=== PATIENT | female | born 1990 | race Caucasian/White ===

== ENCOUNTER 2018-10-03 06:05 | Inpatient (IN) | payer BC ==
[2018-10-03] MEDS ORDERED: METHYLERGONOVINE 0.2 MG/ML 1 ML AMP IM PRN (06:26)
[2018-10-03] MEDS ORDERED: TERBUTALINE 1 MG/ML VIAL SQ PRN (06:26)
[2018-10-03] MEDS ORDERED: CARBOPROST TROMETHAMINE 250 MCG/ML 1 ML AMP IM PRN (06:26)
[2018-10-03] MEDS ORDERED: LIDOCAINE 1% INJ 10MG/ML (20 ML MDV) SQ PRN (06:26)
[2018-10-03] MEDS ORDERED: OXYTOCIN 10 UNIT/ML 1 ML VIAL IM PRN (06:26)
[2018-10-03 06:47] VITALS: BMI 41.2
[2018-10-03] MEDS: OXYTOCIN 20 UNITS/1000 ML NS 1,000 ML IV SCH (06:54)
[2018-10-03] MEDS: LACTATED RINGERS 1,000 ML IV SCH ×3 (06:55→15:38)
[2018-10-03 07:05] LABS: Basophils % (A) 0 %; Eosinophils # (A) 0.2 k/uL (0-0.7); Eosinophils % (A) 1 %; HCT 38.6 % (34.0-46.0); HGB 12.8 gm/dL (11.4-16.0); Lymphocytes # (A) 2.3 k/uL (1.0-4.8); Lymphocytes % (A) 17 %; MCH 29.5 pg (25.0-35.0); MCHC 33.2 g/dL (31.0-37.0); MCV 88.9 fL (80.0-100.0); Mean Platelet Volume 7.5; Monocytes # (A) 0.7 k/uL (0-1.0); Monocytes % (A) 5 %; Neutrophils # (A) 9.9 k/uL (1.3-7.7); Neutrophils % (A) 74 %; Platelet Count 223 k/uL (150-450); RBC 4.35 m/uL (3.80-5.40); RDW 13.7 % (11.5-15.5); WBC 13.4 k/uL (3.8-10.6)
[2018-10-03] MEDS ORDERED: CITRIC ACID-SODIUM CITRATE 15 ML CUP PO ONE ×2 (14:16→14:33)
[2018-10-03] MEDS ORDERED: ceFAZolin IN SWFI 2 GM/20 ML SYRINGE IVP ONE (14:16)
[2018-10-03] MEDS ORDERED: ONDANSETRON 4 MG/2 ML VIAL ONE (15:47)
[2018-10-03] MEDS ORDERED: OXYTOCIN 10 UNIT/ML 1 ML VIAL ONE (15:47)
[2018-10-03] MEDS ORDERED: NALBUPHINE 10 MG/ML VIAL (10ML MDV) ONE (15:47)
[2018-10-03] MEDS ORDERED: MORPHINE SULFATE (PF) 0.3 MG/0.3 ML SYR ONE (15:47)
[2018-10-03] MEDS ORDERED: ePHEDrine SULFATE/0.9% NACL/PF 50 MG/5 ML SYRINGE IV ONE (15:47)
[2018-10-03] MEDS ORDERED: ONDANSETRON 4 MG/2 ML VIAL IVP PRN ×2 (16:36→16:41)
[2018-10-03] MEDS ORDERED: NALBUPHINE 10 MG/ML VIAL (10ML MDV) IV PRN (16:36)
[2018-10-03] MEDS ORDERED: MORPHINE SULFATE 4 MG/ML SYRINGE IVP PRN (16:36)
[2018-10-03] MEDS ORDERED: KETOROLAC 30 MG/ML 1 ML VIAL IVP PRN (16:36)
[2018-10-03] MEDS ORDERED: NALOXONE 0.4 MG/ML 1 ML VIAL IV PRN ×2 (16:36→16:41)
[2018-10-03] MEDS ORDERED: diphenhydrAMINE 50 MG/ML 1 ML VIAL IVP PRN ×3 (16:36→16:41)
--- NOTE | 2018-10-03 16:39 | P.OP ---
Date of Procedure: 10/03/18 Preoperative Diagnosis: IUP at 38 and 0/sevenths weeks, suspected LGA, polyhydramnios Failed induction Postoperative Diagnosis: Same Procedure(s) Performed: Primary low transverse section Anesthesia: spinal Surgeon: Lory Hobbs Employee Training Specialist #1: Peace Ambrose Estimated Blood Loss (ml): 600 IV fluids (ml): 900 Urine output (ml): 500 Pathology: none sent Condition: stable Disposition: PACU Indications for Procedure: Failed induction, patient was admitted to labor and delivery presentation patient received Pitocin throughout the day with regular contractions no cervical change was noted option was given to the patient to proceed with induction versus primary low transverse section secondary to failed induction patient elected primary Operative Findings: Normal uterus tubes and ovaries were appreciated Description of Procedure: The patient was prepped and draped in the usual fashion after spinal anesthesia was administered. A Pfannenstiel incision was made and extended of the abdominal cavity without difficulty. The bladder peritoneum was elevated and incised and reflected distally. A 2 cm incision was made in the transverse plane of the lower uterine segment to enter the uterus at which time clear fluid was noted. The incision was extended in both directions using the bandage scissors. The head was encountered within the field and delivered up and through the incision where the nose and mouth were thoroughly suctioned. Remainder of the was delivered onto the surgical field where the cord was doubly clamped, cut, and the was passed for resuscitative measures with weight 7-14 and Apgars 9-9 at one and 5 minutes respectively. A segment of cord was then doubly clamped, cut, and set aside should cord gases become necessary. The placenta was delivered manually, intact, and was grossly normal with a grossly normal three-vessel cord. The uterus was exteriorized and the interior cavity of the uterus swept of any remaining placental and membranous fragments with a laparotomy sponge. The margins of the incision were grasped with Allis clamps and the incision closed in 2 layers. First layer was a running locking layer of 0 vicryl from margin to margin followed by a second layer of imbricating 0 vicryl from margin to margin. Any small points of bleeding were then made hemostatic with the Bovie. Small amount of bleeding was noted in the midportion of the hysterotomy site therefore a [id number] suture was used to obtain hemostasis. Once hemostasis was achieved, the posterior cul-de-sac was suctioned with a guard and the uterine and ovarian findings are as noted above. The uterus was replaced within the abdominal cavity and the gutters swept of any remaining blood fluid or clot. The incision was again reexamined and hemostasis was noted to be excellent. Any small point of bleeding were made hemostatic with the Bovie. Once hemostasis was achieved the parietal peritoneum was loosely reapproximated. The layer of muscles were examined and made hemostatic with the Bovie. Attention was then turned to the fascia which was closed with 2 running stitches of 0 Vicryl proceeding from the lateral margins to the midpoint. The subcutaneous tissues were irrigated, made hemostatic with the Bovie, and reapproximated with a running stitch of 30 vicryl. The skin was reapproximated with 4-0 vicryl. Estimated blood loss for the case was approximately 600 mL. All sponge instrument and needle counts are correct. There were no complications. The patient tolerated the procedure well and proceeded to the recovery room in stable condition. Both mother and infant are resting comfortably in recovery.
[2018-10-03] MEDS ORDERED: diphenhydrAMINE 25 MG CAP PO PRN (16:41)
[2018-10-03] MEDS ORDERED: MEASLES-MUMPS-RUBELLA VACC/PF 12,500 UNIT/0.5 ML VIAL SQ ONE (16:41)
[2018-10-03] MEDS ORDERED: ACETAMINOPHEN IV (For NPO) 1,000 MG in EMPTY BAG 1 BAG IVPB ONE (16:41)
[2018-10-03] MEDS ORDERED: ZOLPIDEM 5 MG TAB PO PRN (16:41)
[2018-10-03] MEDS ORDERED: HYDROcodone/APAP 5-325MG 1 EACH TAB PO PRN (16:41)
[2018-10-03] MEDS ORDERED: diphenhydrAMINE 50 MG CAP PO PRN (16:41)
[2018-10-03] MEDS ORDERED: METOCLOPRAMIDE 5 MG/ML 2 ML VIAL IVP PRN (16:41)
--- NOTE | 2018-10-03 16:41 | P.HPOB ---
History of Present Illness H&P Date: 10/03/18 Chief Complaint: IUP at 38 and 2/sevenths weeks, polyhydramnios, LGA This is a pleasant 28-year-old 1 para 0 at 38-0/7 weeks, EDC 10/16/2017 that presented to labor and delivery for induction of labor secondary to polyhydramnios, LGA, headache, maternal discomfort. Patient was dated this by a seven-week ultrasound. Patient has been being monitored for LGA since 36 weeks of or the 96th percentile since then. BOGDAN noted to be 22. Patient has noted good movement denies vaginal bleeding loss of fluid. Patient has been receiving routine care with myself since the first trimester. On blood work showed a blood type of O+ with antibody screen positive for anti-am that was unable to be titrated secondary to being too low. Rubella was noted to be nonimmune hepatitis B surface antigen was negative, HIV was negative, group beta strep was negative in addition. Review of Systems Constitutional: Denies chills, Denies fatigue, Denies fever Ears, nose, mouth and throat: Reports headache Cardiovascular: Reports leg edema Respiratory: Denies cough, Denies dyspnea Gastrointestinal: Denies constipation, Denies diarrhea, Denies nausea, Denies vomiting Genitourinary: Reports Past Medical History Past Medical History: No Reported History History of Any Multi-Drug Resistant Organisms: None Reported Past Surgical History: Cholecystectomy Additional Past Surgical History / Comment(s): Lipoma removed from her arm. Past Anesthesia/Blood Transfusion Reactions: No Reported Reaction Past Psychological History: No Psychological Hx Reported Smoking Status: Never smoker Past Alcohol Use History: None Reported Past Drug Use History: None Reported - Past Family History Father Family Medical History: Diabetes Mellitus, Hypertension Mother Family Medical History: Hypertension Medications and Allergies Home Medications Medication Instructions Recorded Confirmed Type Pnv No.95/Ferrous Fum/Folic AC 1 tab PO DAILY 09/10/18 10/03/18 History [ Multivitamin Tablet] Ranitidine HCl [Zantac] 150 mg PO HS PRN 10/03/18 10/03/18 History Allergies Allergy/AdvReac Type Severity Reaction Status Date / Time codeine Allergy Swelling Verified 10/03/18 06:25 Exam Osteopathic Statement: *. No significant issues noted on an osteopathic structural exam other than those noted in the History and Physical/Consult. Vital Signs Temp Pulse Resp BP Pulse Ox 10/03/18 06:35 98.0 F 114 H 16 131/75 97 Intake and Output 10/02/18 10/03/18 10/03/18 22:59 06:59 14:59 Other: # Voids 2 Weight 112.491 kg Targeted physical exam was performed on this date in general this is a well- nourished well-developed female in no acute distress, she displays nonlabored breathing and lungs are clear to auscultation bilaterally, heart is regular rate and rhythm abdomen is gravid and large for gestational age, cervix is 150-3 station amniotomy was performed and clear fluid was obtained. heart tones were noted to be reassuring and she was joe irregularly at this time. Results Result Diagrams: 10/03/18 06:40 Abnormal Lab Results - Last 24 Hours (Table) 10/03/18 Range/Units 06:40 WBC 13.4 H (3.8-10.6) k/uL Neutrophils # 9.9 H (1.3-7.7) k/uL Assessment and Plan (1) Term Current Visit: Yes Status: Acute Code(s): Z34.80 - ENCOUNTER FOR SUPRVSN OF NORMAL , UNSP TRIMESTER SNOMED Code(s): 85797608 (2) LGA (large for gestational age) fetus Current Visit: Yes Status: Acute Code(s): EYZ8532 - SNOMED Code(s): 537066864 (3) Polyhydramnios Current Visit: Yes Status: Acute Code(s): O40.9XX0 - POLYHYDRAMNIOS, UNSP TRIMESTER, NOT APPLICABLE OR UNSP SNOMED Code(s): 76828002 (4) Headache Current Visit: Yes Status: Acute Code(s): R51 - HEADACHE SNOMED Code(s): 72528535 Plan: Patient is admitted to labor and delivery for Pitocin induction of labor. Patient is counseled as the possibility of given her low Dawn score and suspected macrosomic . Patient states understanding and wishes to proceed. We'll follow closely.
[2018-10-03] MEDS ORDERED: IBUPROFEN IV 800 MG in SODIUM CHLORIDE 0.9% 250 ML IV ONE (16:43)
[2018-10-03] MEDS ORDERED: OXYTOCIN 20 UNITS/1000 ML NS 1,000 ML IV SCH (16:45)
[2018-10-04] MEDS: LACTATED RINGERS 1,000 ML IV SCH ×4 (02:00→20:27)
[2018-10-04] MEDS: SENNOSIDES-DOCUSATE SODIUM 1 EACH TAB PO SCH ×3 (04:44→20:00)
[2018-10-04 06:59] LABS: Basophils % (A) 0 %; Eosinophils # (A) 0.1 k/uL (0-0.7); Eosinophils % (A) 0 %; HCT 32.5 % (34.0-46.0); Lymphocytes # (A) 1.7 k/uL (1.0-4.8); Lymphocytes % (A) 12 %; MCH 30.5 pg (25.0-35.0); MCV 89.9 fL (80.0-100.0); Mean Platelet Volume 7.9; Monocytes # (A) 0.8 k/uL (0-1.0); Monocytes % (A) 5 %; Neutrophils # (A) 11.4 k/uL (1.3-7.7); Neutrophils % (A) 81 %; Platelet Count 191 k/uL (150-450); RBC 3.61 m/uL (3.80-5.40); RDW 13.8 % (11.5-15.5); WBC 14.1 k/uL (3.8-10.6)
--- NOTE | 2018-10-04 08:27 | P.PNOBGPC ---
Subjective - Subjective Principal diagnosis: POD 1 LTCS Interval history: Patient has done well overnight. She is ambulating and voiding without difficulty. She is tolerating a regular diet this morning without nausea or vomiting. She is breast-feeding without difficulty. She states her pain is well-controlled is ready. She denies concerns lochia is minimal Patient reports: Reports appetite normal, Reports voiding normally, Reports pain well controlled, Reports ambulating normally [place]: doing well, nursing well Objective - Vital Signs Latest vital signs: Vital Signs Temp Pulse Resp BP Pulse Ox 10/04/18 08:00 98 F 96 14 106/72 10/04/18 05:00 16 10/04/18 04:00 98.8 F 101 H 16 116/67 95 10/04/18 03:00 16 10/04/18 01:00 16 10/04/18 00:00 98 F 93 16 126/72 98 10/03/18 23:00 98.3 F 93 16 126/72 98 10/03/18 21:00 16 10/03/18 19:36 16 10/03/18 18:47 99 16 125/75 10/03/18 18:17 98.4 F 102 H 16 148/73 10/03/18 17:50 107 H 16 106/53 10/03/18 17:36 16 97 10/03/18 17:32 109 H 16 116/61 10/03/18 17:17 98.3 F 113 H 16 127/68 10/03/18 17:02 98.0 F 100 16 137/75 10/03/18 16:47 98.1 F 98 16 137/73 10/03/18 16:36 100 16 136/80 100 Intake and Output 10/03/18 10/04/18 10/04/18 22:59 06:59 14:59 Output Total 1999 3300 700 Balance -1999 -3300 -700 Output: Urine 1999 3300 700 Uretheral ([place]ton) 800 Other: Voiding Method Indwelling Catheter Indwelling Catheter # Voids 1 1 - Exam Extremities: Present: edema Abdomen: Present: normal appearance, soft Incision: Present: normal, dry, intact Uterus: Present: normal, firm - Labs Labs: Abnormal Lab Results - Last 24 Hours (Table) 10/04/18 Range/Units 06:39 WBC 14.1 H (3.8-10.6) k/uL RBC 3.61 L (3.80-5.40) m/uL Hgb 11.0 L (11.4-16.0) gm/dL Hct 32.5 L (34.0-46.0) % Neutrophils # 11.4 H (1.3-7.7) k/uL Assessment and Plan (1) Term Current Visit: Yes Status: Acute Code(s): Z34.80 - ENCOUNTER FOR SUPRVSN OF NORMAL , UNSP TRIMESTER SNOMED Code(s): 04637289 (2) LGA (large for gestational age) fetus Current Visit: Yes Status: Acute Code(s): QDV6833 - SNOMED Code(s): 675496961 (3) Polyhydramnios Current Visit: Yes Status: Acute Code(s): O40.9XX0 - POLYHYDRAMNIOS, UNSP TRIMESTER, NOT APPLICABLE OR UNSP SNOMED Code(s): 90796402 (4) Headache Current Visit: Yes Status: Acute Code(s): R51 - HEADACHE SNOMED Code(s): 22435382 (5) Status post delivery Current Visit: Yes Status: Acute Code(s): Z98.891 - HISTORY OF UTERINE SCAR FROM PREVIOUS SURGERY SNOMED Code(s): 473326498 Plan: We'll continue postoperative care. And anticipate discharge home tomorrow on postop day #2.
--- NOTE | 2018-10-04 11:59 | P.PN ---
Progress Note - Text Progress Note Date: 10/04/18 Postoperative day 1 status post section under spinal anesthesia, and intrathecal morphine given for postoperative analgesia, patient doing well, there is no anesthesia related complications, Patient had no headache, vital signs stable , Assessment and plan= postop day 1 status post , doing well there is no anesthesia related complication.
[2018-10-04] MEDS: IBUPROFEN 600 MG TAB PO PRN ×2 (12:00→20:01)
[2018-10-04] MEDS: OXYTOCIN 20 UNITS/1000 ML NS 1,000 ML IV SCH (20:23)
[2018-10-04] MEDS: ACETAMINOPHEN TAB 325 MG TAB PO PRN (23:19)
[2018-10-05] MEDS: IBUPROFEN 600 MG TAB PO PRN ×2 (02:05→13:36)
[2018-10-05] MEDS: SENNOSIDES-DOCUSATE SODIUM 1 EACH TAB PO SCH (08:00)
[2018-10-05] MEDS: ACETAMINOPHEN TAB 325 MG TAB PO PRN (09:13)
[2018-10-05 09:44] VITALS: BP 124/61; PULSE 104; RESP 18; TEMP 97.7
--- NOTE | 2018-10-05 09:49 | P.DS ---
Providers Date of admission: 10/03/18 06:05 Expected date of discharge: 10/05/18 Attending physician: Lory Hobbs Primary care physician: Stated None Hospital Course: This is a 28-year-old white female 1 para 0 EDC 10/16/1937 weeks gestation. Patient presented in early active spontaneous labor. was essentially unremarkable, group B strep cultures negative, blood type O+, rubella status nonimmune. Please see dictated history and physical for details. Blood pressure on admission normal, 131/75. Patient progressed through labor, but ultimately had arrest of dilatation and descent. She therefore underwent a primary low transverse section. She gave to a liveborn female infant with a weight of 3540 g, or 7 lbs. 14 oz. Please see dictated operative note for details. This morning the patient is doing well. She is voiding, ambulating and passing flatus without difficulty. Vital signs are stable and she is afebrile. Incision is clean and dry, intact, Steri-Strips applied. Extremities reveal trace edema. Chest is clear in all greene. infant is doing well. Patient is requesting discharge home. She is being discharged home in good condition. She will follow-up with Dr. Hobbs the office in 2 weeks for incision check. I reminded her no intercourse, tampons or douching. She will use [id number] ibuprofen products, or Motrin or Aleve as needed for pain. I've asked her to call with any fevers shakes or chills, foul smelling be is lochia, with any difficulties or concerns. She will call with any pain not alleviated by [id number] products. infant will follow-up with curriculum director as recommended. Patient Condition at Discharge: Good Plan - Discharge Summary Discharge Rx Participant: No New Discharge Prescriptions: No Action Pnv No.95/Ferrous Fum/Folic AC [ Multivitamin Tablet] 1 tab PO DAILY Ranitidine HCl [Zantac] 150 mg PO HS PRN PRN Reason: Heartburn Discharge Medication List Pnv No.95/Ferrous Fum/Folic AC [ Multivitamin Tablet] 1 tab PO DAILY 01/23 [History] Ranitidine HCl [Zantac] 150 mg PO HS PRN 10/03/18 [History] Follow up Appointment(s)/Referral(s): Lory Hobbs DO [Doctor of Osteopathic Medicine] - 2 Weeks
== END 2018-10-05 16:25 | disposition home or self-care (01) | DRG 787 ==
LOC: 4FBP 06:05
PROVIDERS: ADMIT Obstetrics & Gynecology Obstetrics; ATTEND Obstetrics & Gynecology Obstetrics
PROC: 3E033VJ Introduction of Other Hormone into Peripheral Vein, Percutaneous Approach (ICD-10-PCS; 2018-10-03)
PROC: 10D00Z1 Extraction of Products of Conception, Low, Open Approach (ICD-10-PCS; principal; 2018-10-03 16:00)
DX: O36.63X0 Maternal care for excessive fetal growth, third trimester, not applicable or unspecified (principal); O99.354 Diseases of the nervous system complicating childbirth; O40.3XX0 Polyhydramnios, third trimester, not applicable or unspecified; O62.0 Primary inadequate contractions; O32.4XX0 Maternal care for high head at term, not applicable or unspecified; O61.0 Failed medical induction of labor; R51 Headache; Z37.0 Single live birth; Z3A.38 38 weeks gestation of pregnancy; Z88.5 Allergy status to narcotic agent; Z82.49 Family history of ischemic heart disease and other diseases of the circulatory system; Z83.3 Family history of diabetes mellitus
CPT/HCPCS: 85025; 86850; 86900; 86901; 90707

== ENCOUNTER 2021-04-25 22:12 | Outpatient (CLI) | payer BC ==
[2021-04-25 23:17] VITALS: BP 134/88; PULSE 102; RESP 18; TEMP 98.3
--- NOTE | 2021-06-15 16:19 | P.MSEPDOC ---
Presenting Problems - Arrival Data Date of Arrival on Unit: 04/25/21 Time of Arrival on Unit: 22:12 Mode of Transport: Ambulatory - Complaint OB-Reason for Admission/Chief Complaint: Decreased Movement Medical History - Information : 2 Para: 1 Term: 1 : 0 Abortions: Spontaneous or Elective: 0 Number of Living Children: 1 - Gestational Age Gestational Age by AARTI (wks/days): 32 Weeks and 5 Days Review of Systems - Review of Systems Constitutional: No problems Breast: No problems ENT: No problems Cardiovascular: No problems Respiratory: No problems Gastrointestinal: No problems Genitourinary: No problems Musculoskeletal: No problems Neurological: No problems Skin: No problems Comment: cough since Sunday Vital Signs - Temperature Temperature: 98.3 F Temperature Source: Oral - Pulse Right Pulse Rate: 102 Pulse Assessment Method: Automatic Cuff - Respirations Respiratory Rate: 18 Oxygen Delivery Method: Room Air O2 Sat by Pulse Oximetry: 98 - Blood Pressure Right Arm Blood Pressure: 134/88 Blood Pressure Mean: 103 Blood Pressure Source: Automatic Cuff Medical Screen Scoring - Cervical Exam Membranes: Intact - Assessment - Baby A Baseline FHR: 150 Heart Rate - NICHD Category: Category I (Normal) NST: Reactive Physician Notification - Physician Notified Physician Notified Date: 04/25/21 Physician Notified Time: 22:50 Physician: Lory Hobbs New Order Received: Yes - Notification Comment Comment: Pt has c/o DFM today and has had c/o cough since Sunday. Spouse was COVID tested (negative), no fever. Order received to COVID swab pt. If test is negative, pt may DC home and follow up as scheduled. Pt to drink lots of fluids, rest, and may take Robutissin PRN for cough. Maternal Triage Index - Stat/Priority 1 Stat Priority 1: No - Urgent/Priority 2 Urgent Priority 2: Yes Provider Notified: Lory Hobbs Provider Notified Time: 22:50 Criteria Met for Priority 2: C/o DFM Disposition - Disposition OB Disposition: Triage Discharge Date: 04/26/21 Discharge Time: 23:45 I agree with the RN Medical Screening Exam: Yes Case reviewed; plan agreed upon as documented in EMR&OBIX.: Yes Diagnosis: DECREASED MOVEMENTS, UNSP TRIMESTER, UNSP
== END 2021-04-25 23:45 | disposition home or self-care (01) ==
LOC: FBPOP 22:12
PROVIDERS: ATTEND Obstetrics & Gynecology Obstetrics
DX: O36.8130 Decreased fetal movements, third trimester, not applicable or unspecified (principal); Z3A.32 32 weeks gestation of pregnancy; Z20.822 Contact with and (suspected) exposure to COVID-19
CPT/HCPCS: 59025; 87635; 99213

== ENCOUNTER 2021-05-17 15:52 | Outpatient (CLI) | payer BC ==
[2021-05-17] MEDS ORDERED: ACETAMINOPHEN TAB 500 MG TAB PO STA (16:16)
[2021-05-17 16:24] LABS: Appearance,Urine Cloudy (Clear); Bilirubin,Urine Negative (Negative); Blood,Urine Negative (Negative); Color,Urine Light Yellow; Glucose,Urine (UA) Negative (Negative); Ketones,Urine Negative (Negative); Leukocyte Esterase,Urine Negative (Negative); Nitrite,Urine Negative (Negative); PH, Urine 6.5 (5.0-8.0); Protein,Urine Negative (Negative); Specific Gravity,Urine 1.005 (1.001-1.035); Squamous Epithelial Cell,Urine 1 /hpf (0-4); Urobilinogen,Urine <2.0 mg/dL (<2.0); WBC,Urine 1 /hpf (0-5)
[2021-05-17 16:36] LABS: ALT 11 U/L (4-34); AST 20 U/L (14-36)
[2021-05-17 16:38] LABS: Creatinine,Urine Random 27.4 mg/dL; Creatinine,Urine Random 27.6 mg/dL; Protein/Creatinine Ratio,Urine 0.507
[2021-05-17 16:45] LABS: Basophils % (A) 0 %; Eosinophils # (A) 0.1 k/uL (0-0.7); Eosinophils % (A) 0 %; HGB 13.7 gm/dL (11.4-16.0); Lymphocytes # (A) 1.9 k/uL (1.0-4.8); Lymphocytes % (A) 17 %; MCH 31.8 pg (25.0-35.0); MCHC 35.2 g/dL (31.0-37.0); MCV 90.2 fL (80.0-100.0); Mean Platelet Volume 8.9; Monocytes # (A) 0.6 k/uL (0-1.0); Monocytes % (A) 5 %; Neutrophils # (A) 8.3 k/uL (1.3-7.7); Neutrophils % (A) 74 %; Platelet Count 203 k/uL (150-450); RBC 4.33 m/uL (3.80-5.40); RDW 13.7 % (11.5-15.5); WBC 11.3 k/uL (3.8-10.6)
[2021-05-17] MEDS ORDERED: BETAMET ACET-BETAMETH SOD PHOS 6 MG/ML MDV IM SCH (17:15)
[2021-05-17 17:50] VITALS: BP 153/80; PULSE 93; RESP 18; TEMP 97.6
== END 2021-05-17 17:40 | disposition home or self-care (01) ==
LOC: FBPOP 15:52
PROVIDERS: ATTEND Obstetrics & Gynecology Obstetrics
DX: O14.93 Unspecified pre-eclampsia, third trimester (principal); Z3A.35 35 weeks gestation of pregnancy; Z88.5 Allergy status to narcotic agent
CPT/HCPCS: 59025; 96372; 82570; 84156; 84450; 84460; 84550; 85025; 81001; J0702; 84560; 99215

== ENCOUNTER 2021-05-18 16:30 | Outpatient (CLI) | payer BC ==
[2021-05-18] MEDS ORDERED: BETAMET ACET-BETAMETH SOD PHOS 6 MG/ML MDV IM SCH (16:45)
[2021-05-18 18:32] VITALS: BP 108/56; PULSE 93; RESP 16; TEMP 97.6
== END 2021-05-18 17:40 | disposition home or self-care (01) ==
LOC: FBPOP 16:30
PROVIDERS: ATTEND Obstetrics & Gynecology Obstetrics
DX: O13.3 Gestational [pregnancy-induced] hypertension without significant proteinuria, third trimester (principal); Z3A.36 36 weeks gestation of pregnancy; Z88.5 Allergy status to narcotic agent
CPT/HCPCS: 59025; 96372; J0702; 99213

== ENCOUNTER 2021-05-25 10:42 | Inpatient (IN) | payer BC ==
[2021-05-25] MEDS ORDERED: LACTATED RINGERS 1,000 ML IV SCH (11:00)
[2021-05-25 11:20] LABS: Basophils % (A) 0 %; Eosinophils # (A) 0.1 k/uL (0-0.7); Eosinophils % (A) 0 %; HCT 42.9 % (34.0-46.0); Lymphocytes # (A) 2.2 k/uL (1.0-4.8); Lymphocytes % (A) 17 %; MCH 31.9 pg (25.0-35.0); MCHC 34.8 g/dL (31.0-37.0); MCV 91.6 fL (80.0-100.0); Mean Platelet Volume 9.3; Monocytes # (A) 0.6 k/uL (0-1.0); Monocytes % (A) 5 %; Neutrophils % (A) 76 %; Platelet Count 219 k/uL (150-450); Poikilocytosis Slight; RBC 4.69 m/uL (3.80-5.40); RDW 14.7 % (11.5-15.5); WBC 13.1 k/uL (3.8-10.6)
[2021-05-25 11:30] LABS: ALT 12 U/L (4-34); AST 20 U/L (14-36); African American GFR (CKD) >90 (>60 ml/min/1.73 sqM); Blood Urea Nitrogen 11 mg/dL (7-17); LDH 443 U/L (313-618); Magnesium 1.7 mg/dL (1.6-2.3); Non-African American GFR(CKD) >90 (>60 ml/min/1.73 sqM); Uric Acid 5.3 mg/dL (3.7-7.4)
[2021-05-25 11:35] LABS: INR 0.9 (<1.2); Prothrombin Time 9.4 sec (9.0-12.0)
[2021-05-25 11:39] LABS: Partial Thromboplastin Time 21.8 sec (22.0-30.0)
[2021-05-25] MEDS ORDERED: CITRIC ACID-SODIUM CITRATE 15 ML CUP PO ONE (12:14)
[2021-05-25 12:21] LABS: Appearance,Urine Clear (Clear); Bilirubin,Urine Negative (Negative); Blood,Urine Negative (Negative); Color,Urine Light Yellow; Glucose,Urine (UA) Negative (Negative); Ketones,Urine Negative (Negative); Leukocyte Esterase,Urine Negative (Negative); Nitrite,Urine Negative (Negative); PH, Urine 6.5 (5.0-8.0); Protein,Urine Negative (Negative); Specific Gravity,Urine 1.007 (1.001-1.035); Urobilinogen,Urine <2.0 mg/dL (<2.0)
[2021-05-25 12:36] LABS: Creatinine,Urine Random 45.4 mg/dL; Protein/Creatinine Ratio,Urine 0.308
[2021-05-25] MEDS ORDERED: PHENYLEPHRINE-0.9% NACL SYG 1,000 MCG/10 ML SYRINGE ONE (16:16)
[2021-05-25] MEDS ORDERED: OXYTOCIN 30 UNITS/500 ML NS BAG IV ONE (16:16)
[2021-05-25] MEDS ORDERED: DEXAMETHASONE SOD PHOSPHATE 4 MG/ML 1 ML VIAL ONE (16:16)
[2021-05-25] MEDS ORDERED: MORPHINE SULFATE (PF) 0.3 MG/0.3 ML SYR ONE (16:16)
[2021-05-25] MEDS ORDERED: ONDANSETRON 4 MG/2 ML VIAL ONE (16:16)
[2021-05-25] MEDS ORDERED: fentaNYL (PF) 50 MCG/ML 2 ML AMP ONE (16:16)
[2021-05-25] MEDS ORDERED: METOCLOPRAMIDE 5 MG/ML 2 ML VIAL IVP PRN (17:20)
[2021-05-25] MEDS ORDERED: ONDANSETRON 4 MG/2 ML VIAL IVP PRN (17:20)
[2021-05-25] MEDS ORDERED: NALOXONE 0.4 MG/ML 1 ML VIAL IV PRN (17:20)
[2021-05-25] MEDS ORDERED: diphenhydrAMINE 50 MG/ML 1 ML VIAL IVP PRN ×2 (17:20)
[2021-05-25] MEDS ORDERED: diphenhydrAMINE 25 MG CAP PO PRN (17:20)
[2021-05-25] MEDS ORDERED: ZOLPIDEM 5 MG TAB PO PRN (17:20)
[2021-05-25] MEDS ORDERED: diphenhydrAMINE 50 MG CAP PO PRN (17:20)
[2021-05-25] MEDS ORDERED: SIMETHICONE 80 MG CHEWABLE PO PRN (17:20)
--- NOTE | 2021-05-25 17:25 | P.HPOB ---
History of Present Illness H&P Date: 05/25/21 Chief Complaint: IUP @ 37 0/7 gestational HTN, h/o section x 1 This is a 30 yo at 37 weeks that presents from the office with complaints of WALTON, despite taking tylenol. patient has had a few elevated BP over the last few weeks and did receive betamethasone. she states she has a worsening WALTON today BP in the office 130's/80's. she states this is pretty c onsistent with her BPs at home. Preeclampsia labs were done on labor and delivery today normal in nature, protein creatinine ratio was elevated at 0.3. she had an uncomplicated first ending in c section due to arrest of descent and dilation. On bloodwork patient has a blood type of O+, rubella status immune, B surface antigen negative, HIV negative, RPR nonreactive, group beta strep cultures negative. Review of Systems Constitutional: Reports fatigue, Reports fever, Denies chills, Denies chronic headaches Ears, nose, mouth and throat: Reports headache Cardiovascular: Reports leg edema Respiratory: Denies dyspnea Gastrointestinal: Denies constipation, Denies diarrhea, Denies nausea, Denies vomiting Genitourinary: Reports Past Medical History Past Medical History: No Reported History History of Any Multi-Drug Resistant Organisms: None Reported Past Surgical History: Cholecystectomy Additional Past Surgical History / Comment(s): Lipoma removed from her arm. Past Anesthesia/Blood Transfusion Reactions: No Reported Reaction Smoking Status: Never smoker - Past Family History Father Family Medical History: Diabetes Mellitus, Hypertension Mother Family Medical History: Hypertension Medications and Allergies Home Medications Medication Instructions Recorded Confirmed Type Pnv No.95/Ferrous Fum/Folic AC 1 tab PO DAILY 09/10/18 05/25/21 History [ Multivitamin Tablet] Allergies Allergy/AdvReac Type Severity Reaction Status Date / Time codeine Allergy Swelling Verified 05/25/21 10:58 Exam Osteopathic Statement: *. No significant issues noted on an osteopathic structural exam other than those noted in the History and Physical/Consult. Intake and Output 05/24/21 05/25/21 05/25/21 22:59 06:59 14:59 Other: Weight 113.852 kg Targeted physical exam is performed and state in general is well-nourished well- developed female in no distress, breathing is noted to be nonlabored, heart has regular rate and rhythm, abdomen is gravid, cervical exam is deferred, heart tones are noted to be category 1 and she is not joe. Results Result Diagrams: 05/25/21 11:01 05/25/21 11:01 Abnormal Lab Results - Last 24 Hours (Table) 05/25/21 05/25/21 Range/Units 11:01 11:01 WBC 13.1 H (3.8-10.6) k/uL Neutrophils # 10.0 H (1.3-7.7) k/uL APTT 21.8 L (22.0-30.0) sec Fibrinogen 687 H (200-500) mg/dL Assessment and Plan (1) 37 weeks gestation of Current Visit: Yes Status: Acute Code(s): Z3A.37 - 37 WEEKS GESTATION OF SNOMED Code(s): 07432565 (2) H/O section Current Visit: Yes Status: Acute Code(s): Z98.891 - HISTORY OF UTERINE SCAR FROM PREVIOUS SURGERY SNOMED Code(s): 435613320 (3) PIH ( induced hypertension) Current Visit: Yes Status: Acute Code(s): O13.9 - GESTATIONAL HTN W/O SIGNIFICANT PROTEINURIA, UNSP TRIMESTER SNOMED Code(s): 61709380 (4) Headache Current Visit: No Status: Acute Code(s): R51 - HEADACHE * DO NOT USE * SNOMED Code(s): 41857391 Plan: 30-year-old at 37-0/7 weeks presented from the office with elevated blood pressures and headache. Blood pressures in the office 137/88. Initial blood pressure was noted to be elevated here on labor and delivery and then settled into 130s over 80s. Initial blood pressure 150s over low 100s subsequent 145/95. Blood pressures did normalize to 130s over 80s with bedrest. Patient is counseled on need for secondary to gestational hypertension diagnosis. Patient states understanding and wishes to proceed. Patient is taken back to the operating suite for repeat section. We'll monitor blood pressures and assess need for magnesium sulfate given symptoms and blood pressures.
[2021-05-25] MEDS ORDERED: OXYTOCIN 30 UNITS/500 ML NS 30 UNIT in SALINE 1 500ML.BAG IV SCH (17:30)
--- NOTE | 2021-05-25 17:30 | P.OP ---
Date of Procedure: 05/25/21 Preoperative Diagnosis: IUP at 37-0/7 weeks, history of 1 desires repeat, gestational hypertension, headache Postoperative Diagnosis: Same Procedure(s) Performed: Repeat section Anesthesia: spinal Surgeon: Lory Hobbs Child Development Specialist #1: Peace Ambrose Estimated Blood Loss (ml): 220 IV fluids (ml): 600 Urine output (ml): 200 Pathology: other (Placenta) Condition: stable Disposition: observation Indications for Procedure: 30-year-old at 37-0/7 weeks that was seen in the office today for visit, blood pressures 137/88, headache noted for the last week per patient. Patient states her headache was increasing in severity. Patient did take Tylenol without relief of symptoms. Patient was counseled to head to labor and delivery for serial blood pressures nonstress test. Nonstress test revealing category 1 heart tones contractions were appreciated. initial blood pressures 152 over low 100, subsequent blood pressures 145 over low 90s, settled into 130s over 80s on bedrest. patient was counseled on diagnosis of gestational hypertension, and the need to do at 37 and 0 secondary to this diagnosis. Patient states understanding and was taken back to the operating suite. Operative Findings: Viable male infant delivered at 1641, vacuum extraction was performed, weight of 7 lbs. 0 oz. and Apgars of 9 and 9 at one and 5 minutes respectively. Normal uterus tubes and ovaries were appreciated. A very thin lower uterine segment was appreciated upon visualization. Description of Procedure: Patient was taken back to the operating suite where spinal anesthesia was found be adequate by the anesthesia department. She was then prepped and draped in the normal sterile fashion in the dorsal supine position. A Pfannenstiel skin incision was made with the scalpel and carried through to the underlying layer of fascia. The fascia was then incised in the midline and the incision was extended laterally. Superior aspect of the fascial incision was then grasped delonte clamps, elevated and underlying rectus muscles dissected off sharply. Attention was then turned to the inferior aspect of the fascial incision which was grasped delonte clamps, elevated and underlying rectus muscles dissected off sharply once again. The rectus muscles were in the midline the peritoneum was identified and entered. The incision was then extended superiorly and inferiorly with good visualization the bladder. The bladder blade was then inserted and the vesicouterine peritoneum was identified and the bladder flap was created using sharp and blunt dissection. Hysterotomy incision was then performed with the scalpel amniotomy was performed clear fluid was obtained. Infant was delivered in a vertex presentation via vacuum assist. The umbilical cord was doubly clamped and cut and infant was handed off to awaiting RN. The placenta was then delivered manually and uterus cleared of all clots and debris. Prior to this cord blood was taken. The uterus was delivered from the abdomen the uterine incision was then closed with 0 Vicryl in a running locked fashion. A second imbricating suture was performed. Bleeding was noted on the midportion of the uterine incision therefore a [id number] suture was used to obtain hemostasis. The uterine incision was inspected hemostasis was appreciated. The uterus was returned to the abdomen. The gutters were cleared of all clots and debris. On inspection of the hysterotomy incision hemostasis was appreciated. The peritoneum was then loosely reapproximated the rectus muscles were then inspected hemostasis was appreciated. The fascia was then closed with 0 Vicryl in a running fashion from one lateral edge the midline and the other lateral edge the midline. The subcutaneous tissue was then irrigated found to be hemostatic and closed with 3-0 Vicryl in a running fashion. The skin was then closed with 4-0 Vicryl in a subcuticular fashion. Steri-Strips and sterile dressings were applied. All counts were noted to be correct 2 at the end of the procedure. Patient and tolerated procedure well and are resting comfortably.
[2021-05-25] MEDS: LACTATED RINGERS 1,000 ML IV SCH ×3 (18:36→20:55)
[2021-05-25] MEDS: ACETAMINOPHEN IV (For NPO) 1,000 MG in EMPTY BAG 1 BAG IVPB SCH (18:37)
[2021-05-25] MEDS ORDERED: LABETALOL 100 MG TAB PO PRN (18:59)
[2021-05-25] MEDS: ACETAMINOPHEN TAB 500 MG TAB PO SCH ×2 (20:53→20:54)
[2021-05-25] MEDS ORDERED: IBUPROFEN IV 800 MG in SODIUM CHLORIDE 0.9% 250 ML IV SCH (21:00)
[2021-05-25] MEDS: SENNOSIDES-DOCUSATE SODIUM 1 EACH TAB PO SCH (21:13)
[2021-05-26] MEDS: ACETAMINOPHEN IV (For NPO) 1,000 MG in EMPTY BAG 1 BAG IVPB SCH (00:48)
[2021-05-26] MEDS ORDERED: IBUPROFEN IV 800 MG in SODIUM CHLORIDE 0.9% 250 ML IV SCH (01:00)
[2021-05-26] MEDS: LACTATED RINGERS 1,000 ML IV SCH ×2 (02:46→05:53)
[2021-05-26] MEDS: ACETAMINOPHEN TAB 500 MG TAB PO SCH ×5 (02:46→21:14)
[2021-05-26] MEDS: IBUPROFEN 600 MG TAB PO SCH ×4 (06:44→21:12)
--- NOTE | 2021-05-26 07:08 | P.PN ---
Progress Note - Text 05/26/21 626am 30-year-old female status post with spinal Duramorph. Patient seen and evaluated this morning, patient has a VAS of 0, no complains of nausea vomiting. She has mild pruritus which should resolve by the end of the day
[2021-05-26 08:15] LABS: Basophils % (A) 0 %; Eosinophils % (A) 0 %; HCT 39.8 % (34.0-46.0); HGB 13.5 gm/dL (11.4-16.0); Lymphocytes # (A) 2.5 k/uL (1.0-4.8); Lymphocytes % (A) 16 %; MCH 31.2 pg (25.0-35.0); MCHC 33.9 g/dL (31.0-37.0); MCV 92.1 fL (80.0-100.0); Mean Platelet Volume 9.7; Monocytes # (A) 0.6 k/uL (0-1.0); Monocytes % (A) 4 %; Neutrophils # (A) 12.5 k/uL (1.3-7.7); Neutrophils % (A) 79 %; Platelet Count 184 k/uL (150-450); RBC 4.32 m/uL (3.80-5.40); RDW 14.3 % (11.5-15.5); WBC 15.9 k/uL (3.8-10.6)
--- NOTE | 2021-05-26 08:41 | P.PNOBGPC ---
Subjective - Subjective Principal diagnosis: POD 1 RCS, gestational HTN Interval history: Patient is doing well this morning. She is ambulating and voiding without difficulty. She states her pain is well-controlled. She denies concerns, breast-feeding/pumping. Lochia is noted to be minimal. Patient reports: Reports appetite normal, Reports voiding normally, Reports pain well controlled, Reports ambulating normally [place]: doing well, nursing well Objective - Vital Signs Latest vital signs: Vital Signs Temp Pulse Resp BP Pulse Ox 05/26/21 08:00 98.3 F 80 16 116/78 97 05/26/21 03:33 98.0 F 74 16 113/72 97 05/26/21 00:00 98.2 F 80 16 121/74 05/25/21 19:42 98.1 F 86 16 118/70 97 05/25/21 19:21 89 16 120/70 98 05/25/21 19:01 98.3 F 90 16 119/66 100 05/25/21 18:30 91 16 127/67 100 05/25/21 18:00 85 16 116/67 100 05/25/21 17:45 83 16 129/71 98 05/25/21 17:30 81 16 124/68 99 05/25/21 17:15 97.4 F L 85 16 123/69 100 05/25/21 15:11 98.0 F 95 16 124/71 98 Intake and Output 05/25/21 05/26/21 05/26/21 22:59 06:59 14:59 Intake Total 540 Output Total 400 1650 Balance -400 -1110 Intake: Oral 540 Output: Urine 400 1650 Other: Voiding Method Indwelling Catheter # Voids 1 1 Weight 113.852 kg - Exam Extremities: Present: normal, edema Abdomen: Present: normal appearance Incision: Present: normal, dry, intact Uterus: Present: normal, firm - Labs Labs: Abnormal Lab Results - Last 24 Hours (Table) 05/25/21 05/25/21 05/26/21 Range/Units 11:01 11:01 07:50 WBC 13.1 H 15.9 H (3.8-10.6) k/uL Neutrophils # 10.0 H 12.5 H (1.3-7.7) k/uL APTT 21.8 L (22.0-30.0) sec Fibrinogen 687 H (200-500) mg/dL Assessment and Plan (1) 37 weeks gestation of Current Visit: Yes Status: Acute Code(s): Z3A.37 - 37 WEEKS GESTATION OF SNOMED Code(s): 38232900 (2) H/O section Current Visit: Yes Status: Acute Code(s): Z98.891 - HISTORY OF UTERINE SCAR FROM PREVIOUS SURGERY SNOMED Code(s): 205070299 (3) PIH ( induced hypertension) Current Visit: Yes Status: Acute Code(s): O13.9 - GESTATIONAL HTN W/O SIGNIFICANT PROTEINURIA, UNSP TRIMESTER SNOMED Code(s): 32863248 (4) Headache Current Visit: No Status: Acute Code(s): R51 - HEADACHE * DO NOT USE * SNOMED Code(s): 22786351 (5) Status post delivery Current Visit: No Status: Acute Code(s): Z98.891 - HISTORY OF UTERINE SCAR FROM PREVIOUS SURGERY SNOMED Code(s): 070982900 Plan: 30-year-old G2 now P2 status post repeat for gestational hypertension at 37 weeks. Patient had noted headache worsening over the last week with elevated blood pressures 130s over 80s. Highest blood pressures 150s over low 100. Patient states this morning her headache is completely resolved. We will plan to continue routine postoperative care, monitor blood pressures closely.
[2021-05-26] MEDS: SENNOSIDES-DOCUSATE SODIUM 1 EACH TAB PO SCH ×2 (10:28→20:29)
[2021-05-26] MEDS: PRENATAL VIT-IRON-FOLIC ACID 1 EACH CAP PO SCH (12:47)
[2021-05-27] MEDS: ACETAMINOPHEN TAB 500 MG TAB PO SCH ×3 (01:19→13:10)
[2021-05-27] MEDS: IBUPROFEN 600 MG TAB PO SCH ×2 (02:46→09:26)
[2021-05-27] MEDS: SENNOSIDES-DOCUSATE SODIUM 1 EACH TAB PO SCH (08:30)
[2021-05-27 08:32] VITALS: BP 111/75; PULSE 80; RESP 16; TEMP 97.8
[2021-05-27] MEDS: PRENATAL VIT-IRON-FOLIC ACID 1 EACH CAP PO SCH (09:29)
--- NOTE | 2021-05-27 10:53 | P.DS ---
Providers Date of admission: 05/25/21 11:53 Expected date of discharge: 05/27/21 Attending physician: Lory Hobbs Primary care physician: Stated None - Discharge Diagnosis(es) (1) 37 weeks gestation of Current Visit: Yes Status: Acute (2) H/O section Current Visit: Yes Status: Acute (3) PIH ( induced hypertension) Current Visit: Yes Status: Acute (4) Headache Current Visit: No Status: Acute (5) Status post delivery Current Visit: No Status: Acute Hospital Course: This is a 30-year-old G2 now P2 that presents to labor and delivery at 37-0/7 weeks after being seen in the office for visit. Blood pressures were noted to be 137/88, initially blood pressures on OB 150s over low 100 140s over mid 90s. Patient complaining of a headache for approximately 1 week. Patient stated her headache and was increasing in severity without relief of symptoms after she took Tylenol. Patient was counseled on proceeding with repeat C- section secondary to gestational hypertension. Patient stated understanding and wished to proceed. Patient has been receiving routine care which is been essentially uncomplicated with myself. Patient was taken back to the operating suite was performed without difficulty, vacuum extraction for delivery of the fetus at 1641, weight of 7 lbs. 0 oz. and Apgars of 9 and 9 at one and 5 minutes respectively. A very thin lower uterine segment was appreciated upon delivery. A [facility] postoperative course has been uneventful. On this postoperative day #2 she is ambulating and voiding without difficulty. She is tolerating a regular diet without nausea or vomiting. Her pain is well- controlled with oral ibuprofen/Tylenol. She is breast-feeding without difficulty. Patient Condition at Discharge: Good Plan - Discharge Summary New Discharge Prescriptions: No Action Pnv No.95/Ferrous Fum/Folic AC [ Multivitamin Tablet] 1 tab PO DAILY Discharge Medication List Pnv No.95/Ferrous Fum/Folic AC [ Multivitamin Tablet] 1 tab PO DAILY 09/10/18 [History] Follow up Appointment(s)/Referral(s): Lory Hobbs DO [Doctor of Osteopathic Medicine] - 2 Weeks Patient Instructions/Handouts: (DC), (GEN) Discharge Disposition: HOME SELF-CARE
== END 2021-05-27 14:30 | disposition home or self-care (01) | DRG 788 ==
LOC: FBPOP 10:42 → 4FBP 11:53
PROVIDERS: ADMIT Obstetrics & Gynecology Obstetrics; ATTEND Obstetrics & Gynecology Obstetrics
PROC: 10D00Z1 Extraction of Products of Conception, Low, Open Approach (ICD-10-PCS; principal; 2021-05-25 16:34)
DX: O34.211 Maternal care for low transverse scar from previous cesarean delivery (principal); O13.4 Gestational [pregnancy-induced] hypertension without significant proteinuria, complicating childbirth; Z83.3 Family history of diabetes mellitus; Z37.0 Single live birth; Z3A.37 37 weeks gestation of pregnancy; Z82.49 Family history of ischemic heart disease and other diseases of the circulatory system
CPT/HCPCS: 81003; 82565; 82570; 83615; 83735; 84156; 84450; 84460; 84520; 84550; 85025; 85384; 85610; 85730; 86850; 86900; 86901; 88307

== ENCOUNTER → 2021-07-14 | Outpatient (CLI) | payer BC ==
--- NOTE | 2021-07-14 12:15 | USB ---
Reason for exam: clinical finding. History: Family history of breast cancer in mother at age 60 and breast cancer in maternal grandmother at age 30. Indicated problem(s): palpable abnormality in the left breast. Physical Findings: Nurse did not find any significant physical abnormalities on exam. US Breast LT Left limited breast ultrasound including focal area of concern, retroareolar and axilla demonstrates no cystic or solid lesion seen. Scanned left axilla at scar, no focal abnormality seen. These results were verbally communicated with the patient and result sheet given to the patient on 07/14/21. ASSESSMENT: Negative, BI-RAD 1 RECOMMENDATION: Routine screening mammogram of both breasts at age 38. (unless clinical indication to start sooner) Manage on a clinical basis with regard to any suspicious palpable abnormality.
== END | disposition home or self-care (01) ==
LOC: RADUSWWP 08:49
PROVIDERS: ATTEND Obstetrics & Gynecology
DX: N64.89 Other specified disorders of breast (principal); Z80.3 Family history of malignant neoplasm of breast